=== PATIENT | female | born 1955 | race Caucasian/White ===

== ENCOUNTER 2017-09-04 06:32 | Emergency (ER) | payer OTHER ==
[2017-09-04 06:44] VITALS: BP 128/68; PULSE 64; TEMP 98.3; BMI 19.8
--- NOTE | 2017-09-04 06:45 | PDOC ---
History of Present Illness - General Stated Complaint: RIGHT ANKLE INJURY Time Seen by Provider: 09/04/17 06:44 History Source: Patient Exam Limitations: No Limitations - History of Present Illness Initial Comments: 09/04/17 06:49 This is a 62-year-old female male who twisted her right ankle yesterday while ambulating. Patient did not hit her head and denies any other injuries. Patient comes in this morning for evaluation as it is gotten much more swollen. PAST MEDICAL HISTORY: no significant history PAST SURGICAL HISTORY: no significant history FAMILY HISTORY: no pertinant history SOCIAL HISTORY: Pt lives with family and is employed. MEDICATIONS: reviewed ALLERGIES: As per nursing notes Review of Systems General: No fevers or chills, no weakness, no weight loss HEENT: No change in vision. No sore throat,. No ear pain CardioVascular: No chest pain or shortness of breath Respiratory:No cough, or wheezing. Gastrointestinal: no nausea, vomitting, diarrhea or constipation, No rectal bleeding Genitourinary: No dysuria, hematuria, or frequency Musculoskeletal: Pain and swelling of right ankle Neurologic: No headache, vertigo, dizziness or loss of consciousness Psychiatric: nor depression Skin: No rashes or easy bruising Endocrine: no increased thirst or abnormal weight change Allergic: no skin or latex allergy All other systems reviewed and normal EXAM GENERAL: The patient is awake, alert, and fully oriented, in no acute distress. HEAD: Normal with no signs of trauma. EYES: Pupils equal, round and reactive to light, extraocular movements intact, sclera anicteric, conjunctiva clear. EXTREMITIES: RIght ankle: There is moderate swelling over the anterior talofibular and calcaneofibular ligaments there is some mild tenderness over the lateral malleolus there is no tenderness over the base of the fifth metatarsal , neurovascular is intact NEUROLOGICAL: Normal speech, normal gait. grossly intact PSYCH: Normal mood, normal affect. SKIN: Warm, Dry, normal turgor, no rashes or lesions noted. A portion of this note was documented by scribe services under my direction. I have reviewed the details of the note, within reason, and agree with the documentation. The case summary and management plan written by me. X-ray no acute fracture or dislocation 09/04/17 20:25 Assessment and plan: This is a 62-year-old female who comes in complaining of pain and swelling over the lateral malleolus of her ankle. Patient twisted the ankle while ambulating when she lost her balance. Patient is on Plavix. Patient had x-ray that was negative for any acute pathology. Patient's ankle was Umang wrap and a prescription was sent to her pharmacy for Percocet. Patient given crutches for ambulation Past History - Past Medical History Allergies/Adverse Reactions: Allergies Allergy/AdvReac Type Severity Reaction Status Date / Time No Known Allergies Allergy Unverified 09/04/17 06:36 Home Medications: Ambulatory Orders NK [No Known Home Medication] 09/04/17 COPD: No Other medical history: DENIES - Suicide/Smoking/Psychosocial Hx Smoking History: Former smoker Have you smoked in the past 12 months: Yes If you are a former smoker, when did you quit?: 1 MONTH Information on smoking cessation initiated: No Hx Alcohol Use: Yes (SOCIAL) Drug/Substance Use Hx: No Substance Use Type: Alcohol *Physical Exam - Vital Signs Last Vital Signs Temp Pulse Resp BP Pulse Ox 98.3 F 64 16 128/68 98 09/04/17 06:33 09/04/17 06:33 09/04/17 06:33 09/04/17 06:33 09/04/17 06:33 *DC/Admit/Observation/Transfer Diagnosis at time of Disposition: Moderate right ankle sprain Qualifiers: Encounter type: initial encounter Qualified Code(s): S93.401A - Sprain of unspecified ligament of right ankle, initial encounter - Discharge Dispostion Disposition: HOME Condition at time of disposition: Stable Admit: No - Referrals - Patient Instructions Printed Discharge Instructions: Ankle Sprain Additional Instructions: Take ibuprofen 2-3 tablets 3 times a day with food don't take on an empty stomach. Take as needed for the pain and inflammation of the ankle. Wear the Umang wrap Rest, elevate, ice, Ice the ankle 20 minutes at a time 3-4 times a day for the next 2 days. Return to the emergency department immediately with ANY new, persistent or worsening symptoms. Continue any medications as previously prescribed by your physician. You should follow up with your primary doctor as soon as possible regarding today's emergency department visit. . Please make sure your doctor reviews the results of your emergency evaluation. Thank you for coming to the Emergency Department today for your care. It was a pleasure to see you today. Please note that your evaluation is INCOMPLETE until you follow-up with your doctor. - Post Discharge Activity
--- NOTE | 2017-09-04 20:31 | PDOC ---
*Physical Exam - Vital Signs Last Vital Signs Temp Pulse Resp BP Pulse Ox 98.3 F 64 16 128/68 98 09/04/17 06:33 09/04/17 06:33 09/04/17 06:33 09/04/17 06:33 09/04/17 06:33 ED Treatment Course - RADIOLOGY Radiology Studies Ordered: Category Date Time Status ANKLE-RIGHT [RAD] Stat Radiology 09/04/17 06:45 Completed Progress Note - Progress Note Progress Note: This chart is to correct an error in my earlier dictation. Patient does not take Plavix, she did not require crutches, and a Percocet prescription was not sent to her pharmacy. Patient was discharged home on ibuprofen. *DC/Admit/Observation/Transfer Diagnosis at time of Disposition: Moderate right ankle sprain Qualifiers: Encounter type: initial encounter Qualified Code(s): S93.401A - Sprain of unspecified ligament of right ankle, initial encounter - Discharge Dispostion Disposition: HOME Condition at time of disposition: Stable - Referrals - Patient Instructions Printed Discharge Instructions: Ankle Sprain Additional Instructions: Take ibuprofen 2-3 tablets 3 times a day with food don't take on an empty stomach. Take as needed for the pain and inflammation of the ankle. Wear the Umang wrap Rest, elevate, ice, Ice the ankle 20 minutes at a time 3-4 times a day for the next 2 days. Return to the emergency department immediately with ANY new, persistent or worsening symptoms. Continue any medications as previously prescribed by your physician. You should follow up with your primary doctor as soon as possible regarding today's emergency department visit. . Please make sure your doctor reviews the results of your emergency evaluation. Thank you for coming to the Emergency Department today for your care. It was a pleasure to see you today. Please note that your evaluation is INCOMPLETE until you follow-up with your doctor. - Post Discharge Activity
== END 2017-09-04 08:56 | disposition home or self-care (01) ==
LOC: FER 06:32
DX: S93.401A Sprain of unspecified ligament of right ankle, initial encounter (principal); X58.XXXA Exposure to other specified factors, initial encounter; Y93.89 Activity, other specified; Y92.9 Unspecified place or not applicable; Z87.891 Personal history of nicotine dependence
CPT/HCPCS: 73610-TC-RT-FY; 99282-25